=== PATIENT | male | born 1945 | race Caucasian/White ===

== ENCOUNTER 2018-04-27 15:25 | Inpatient (IN) | payer MEDICARE, BC ==
[2018-04-27] VITALS (10 sets, daily range): BP systolic 136–152; BP diastolic 71–84
[~2018-04-27] VITALS: Ht 182.9 cm; Wt 99.0 kg
[~2018-04-27 15:25] MED LIST: ALBU8.5H8 IH; FLUO10CA66 PO; LOSA50TA21 PO; LYSI500T40 PO; MULT-785 PO; OMEG1CAP54 PO
[2018-04-27] MEDS ORDERED: diphenhydrAMINE 25mg capsule PO PRN (15:50)
[2018-04-27] MEDS ORDERED: LORazepam 0.5 MG tablet PO PRN (15:50)
[2018-04-27] MEDS ORDERED: [UNRECOGNIZED DRUG - OTHER] PO (16:13)
[2018-04-27] MEDS: normal saline 1000ml 1,000 ML IV SCH (16:32)
[2018-04-27] MEDS ORDERED: LIDOcaine 1% (10mg/ml)w/preservative injection 20ml MDV ONE (19:09)
[2018-04-27] MEDS ORDERED: verapamil 2.5 mg/ml inj IV ONE (19:09)
[2018-04-27] MEDS ORDERED: heparin 1,000unit/ml 10ml vial 10 ML ONE (19:09)
[2018-04-27] MEDS ORDERED: fentaNYL/PF 50MCG/1 ML 2ML syringe ONE (19:09)
[2018-04-27] MEDS ORDERED: midazolam 2 mg/2 ml injection ONE (19:09)
[2018-04-27] MEDS ORDERED: iohexol 350MG/ML 100ml bottle IV ONE (19:09)
[2018-04-27] MEDS ORDERED: nitroGLYCERIN-Tridil 50MG/D5W 250 ML IV ONE (19:09)
[2018-04-27] MEDS ORDERED: hydrocortisone sod succ/PF 100mg/2ml inj. ONE (19:19)
[2018-04-27] MEDS ORDERED: ondansetron/PF 4mg/2ml inj IV PRN (20:40)
[2018-04-27] MEDS ORDERED: proCHLORperazine 10 MG/2 ml inj IV PRN (20:40)
[2018-04-28] MEDS: normal saline 1000ml 1,000 ML IV SCH ×3 (02:28→22:18)
[2018-04-28 03:00] VITALS: BP 129/73
[2018-04-28 05:59] LABS: CHOL/HDL RATIO 2.6 (0.00-4.99); CHOLESTEROL 155 MG/DL (0-200); CREATINE KINASE 71 U/L (39-308); HDL CHOLESTEROL 59 MG/DL (35-60); LDL CHOLESTEROL 84 MG/DL (50-100); TRIGLYCERIDES 82 MG/DL (20-135)
[2018-04-28 07:00] VITALS: BP 146/72
[2018-04-28] MEDS: atorvastatin 20mg tablet PO SCH (07:50)
[2018-04-28] MEDS: losartan 50mg tablet PO SCH (07:50)
[2018-04-28] MEDS: FLUoxetine 10mg capsule PO SCH (07:50)
[2018-04-28] MEDS: cyanocobalamin 500mcg tablet PO SCH (09:36)
[2018-04-28 09:52] LABS: HEMATOCRIT 43.6 % (42.0-52.0); HEMOGLOBIN 14.3 g/dl (14.0-17.9); MEAN CORPUSCULAR HEMOGLOBIN 28.8 PG (27.0-31.0); MEAN CORPUSCULAR HGB CONC 32.7 % (33.0-36.5); MEAN PLATELET VOLUME 9.3 FL (7.4-10.4); PLATELET COUNT 308 X10'3 (140-440); RED BLOOD COUNT 4.95 X10'6 (4.70-6.10); RED CELL DISTRIBUTION WIDTH 15.5 % (11.5-14.5); WHITE BLOOD COUNT 8.7 X10'3 (4.5-11.0)
[2018-04-28 10:02] LABS: HEMOGLOBIN A1C 5.8 % (4.5-6.2)
[2018-04-28] MEDS: MESSAGE TO NURSING PO NR (10:06)
[2018-04-28 10:07] LABS: PARTIAL THROMBOPLASTIN TIME 29 SECONDS (22-32)
[2018-04-28 10:09] LABS: ALBUMIN 3.1 G/DL (3.4-5.0); ANION GAP 7 (8-16); BLOOD UREA NITROGEN 19 MG/DL (7-18); BUN/CREATININE RATIO 17.6 (5.4-32.0); CALCIUM 9.1 MG/DL (8.5-10.1); CHLORIDE 105 MMOL/L (99-107); CREATININE 1.08 MG/DL (0.60-1.10); GLUCOSE 112 MG/DL (70-104); POTASSIUM 4.2 MMOL/L (3.5-5.1); SODIUM 140 MMOL/L (135-145); TOTAL CARBON DIOXIDE 28.5 MMOL/L (24-32); eGFR 67 ML/MIN
[2018-04-28 11:00] VITALS: BP 152/73
[2018-04-28 15:00] VITALS: BP 137/76
[2018-04-28 19:00] VITALS: BP 118/57
[2018-04-28 23:00] VITALS: BP 143/74
[2018-04-28] MEDS: OXAZEpam 15mg capsule PO PRN (23:18)
[2018-04-29] VITALS (7 sets, daily range): BP systolic 131–166; BP diastolic 62–80
[2018-04-29 04:44] LABS: BASOPHILS % (AUTO) 0.5 % (0-1); EOSINOPHILS # (AUTO) 0.4 X10'3 (0-0.9); EOSINOPHILS % (AUTO) 4.7 % (0-6); HEMATOCRIT 40.4 % (42.0-52.0); HEMOGLOBIN 13.4 g/dl (14.0-17.9); LYMPHOCYTES % (AUTO) 25.9 % (21-51); MEAN CORPUSCULAR HGB CONC 33.3 % (33.0-36.5); MEAN CORPUSCULAR VOLUME 87.1 FL (78-98); MEAN PLATELET VOLUME 9.1 FL (7.4-10.4); MONOCYTES # (AUTO) 0.8 X10'3 (0-0.9); MONOCYTES % (AUTO) 10.4 % (2-12); NEUTROPHILS # (AUTO) 4.4 X10'3 (1.8-7.7); NEUTROPHILS % (AUTO) 58.5 % (42-75); PLATELET COUNT 274 X10'3 (140-440); RED BLOOD COUNT 4.64 X10'6 (4.70-6.10); RED CELL DISTRIBUTION WIDTH 14.7 % (11.5-14.5); WHITE BLOOD COUNT 7.6 X10'3 (4.5-11.0)
[2018-04-29 04:56] LABS: ALBUMIN 2.9 G/DL (3.4-5.0); ANION GAP 5 (8-16); BLOOD UREA NITROGEN 17 MG/DL (7-18); BUN/CREATININE RATIO 15.9 (5.4-32.0); CALCIUM 8.9 MG/DL (8.5-10.1); CHLORIDE 107 MMOL/L (99-107); CREATININE 1.07 MG/DL (0.60-1.10); GLUCOSE 95 MG/DL (70-104); POTASSIUM 4.2 MMOL/L (3.5-5.1); SODIUM 142 MMOL/L (135-145); TOTAL CARBON DIOXIDE 29.7 MMOL/L (24-32); eGFR 68 ML/MIN
[2018-04-29] MEDS ORDERED: dextrose 50%-water 50ml dispensing syringe IV PRN (07:20)
[2018-04-29] MEDS: losartan 50mg tablet PO SCH (07:41)
[2018-04-29] MEDS: cyanocobalamin 500mcg tablet PO SCH (07:41)
[2018-04-29] MEDS: atorvastatin 20mg tablet PO SCH (07:41)
[2018-04-29] MEDS: FLUoxetine 10mg capsule PO SCH (07:41)
[2018-04-29] MEDS: normal saline 1000ml 1,000 ML IV SCH ×2 (07:55→17:50)
[2018-04-29] MEDS: MESSAGE TO NURSING PO NR (10:00)
[2018-04-29] MEDS ORDERED: MESSAGE TO NURSING PO ONE ×2 (12:00→17:30)
[2018-04-29 16:56] LABS: ABG BASE EXCESS 1.9 mmol/L (-2.0-3.0); ABG HCO3 25.8 mmol/L (22.0-26.0); ABG OXYGEN SATURATION 97.9 % (95-98); ABG PCO2 (T) 37.9 mmHg (35.0-48.0); ABG PO2 (T) 115.1 mmHg (83-108); FCOHb 0.1 % (0.5-1.5); FMetHb 0.1 % (0.3-1.12); FO2Hb 97.7 % (94-100); TOTAL HEMOGLOBIN 14.5 G/dl (14.0-18.0)
[2018-04-29] MEDS ORDERED: ringers solution, lacted 1,000 ML IV ONE (18:38)
[2018-04-29] MEDS: OXAZEpam 15mg capsule PO PRN (20:38)
[2018-04-30] VITALS (16 sets, daily range): BP systolic 90–165; BP diastolic 48–84
[2018-04-30] MEDS ORDERED: MESSAGE TO NURSING PO ONE ×3 (01:30→05:30)
[2018-04-30] MEDS: normal saline 1000ml 1,000 ML IV SCH (03:50)
[2018-04-30] MEDS ORDERED: cefazolin/dext.iso 2gm/100ml 100 ML IV ONE (05:30)
[2018-04-30] MEDS ORDERED: vancomycin/NS 1 GM ADD-VANTAGE 250 ML IV ONE (05:30)
[2018-04-30] MEDS ORDERED: famotidine 20mg tablet PO ONE (06:00)
[2018-04-30] MEDS ORDERED: LORazepam 2 mg/ml vial IV ONE (06:00)
[2018-04-30 06:30] LABS: BASOPHILS % (AUTO) 0.6 % (0-1); EOSINOPHILS # (AUTO) 0.3 X10'3 (0-0.9); EOSINOPHILS % (AUTO) 4.6 % (0-6); HEMATOCRIT 41.2 % (42.0-52.0); HEMOGLOBIN 13.7 g/dl (14.0-17.9); LYMPHOCYTES # (AUTO) 1.5 X10'3 (1.1-4.8); LYMPHOCYTES % (AUTO) 20.9 % (21-51); MEAN CORPUSCULAR HGB CONC 33.3 % (33.0-36.5); MEAN PLATELET VOLUME 9.4 FL (7.4-10.4); MONOCYTES # (AUTO) 0.7 X10'3 (0-0.9); MONOCYTES % (AUTO) 9.5 % (2-12); NEUTROPHILS # (AUTO) 4.8 X10'3 (1.8-7.7); NEUTROPHILS % (AUTO) 64.4 % (42-75); PLATELET COUNT 270 X10'3 (140-440); RED BLOOD COUNT 4.73 X10'6 (4.70-6.10); WHITE BLOOD COUNT 7.4 X10'3 (4.5-11.0)
[2018-04-30 06:38] LABS: ANION GAP 8 (8-16); BLOOD UREA NITROGEN 18 MG/DL (7-18); BUN/CREATININE RATIO 16.5 (5.4-32.0); CHLORIDE 106 MMOL/L (99-107); CREATININE 1.09 MG/DL (0.60-1.10); GLUCOSE 95 MG/DL (70-104); POTASSIUM 3.9 MMOL/L (3.5-5.1); SODIUM 142 MMOL/L (135-145); TOTAL CARBON DIOXIDE 27.8 MMOL/L (24-32); eGFR 66 ML/MIN
[2018-04-30 06:42] LABS: PROTHROMBIN TIME 10.1 SECONDS (9.0-12.0)
[2018-04-30] MEDS: atorvastatin 20mg tablet PO SCH (07:55)
[2018-04-30] MEDS ORDERED: mupirocin 2% nasal ointment 1gm UD NS SCH (08:00)
[2018-04-30] MEDS ORDERED: phenylephrine 10mg/ml inj. ONE ×2 (09:00→15:01)
[2018-04-30] MEDS ORDERED: heparin 1,000 units/ml 10ml inj ONE (09:00)
[2018-04-30] MEDS ORDERED: sodium bicarbonate (8.4%) 1 mEq/ml syringe ONE (09:00)
[2018-04-30] MEDS ORDERED: potassium Cl 2 mEq/ml inj IV ONE (09:00)
[2018-04-30] MEDS ORDERED: aminocaproic acid 250 MG/1 ML inj. ONE ×2 (09:00→11:40)
[2018-04-30] MEDS ORDERED: albumin (human) 25% 100 ML IV solution IV ONE (09:00)
[2018-04-30] MEDS ORDERED: LIDOcaine 2% (20 mg/ml) 5ml cardiac syringe ONE (09:00)
[2018-04-30] MEDS ORDERED: heparin 10,000 units/1 ML INJ ONE (09:00)
[2018-04-30] MEDS ORDERED: calcium chloride 100 MG/1 ML inj IV ONE (09:00)
[2018-04-30] MEDS ORDERED: methylPREDNISolone sod succ 1000mg vial ONE (09:00)
[2018-04-30] MEDS ORDERED: magnesium sulf 1 GM/2 ML ONE (09:00)
[2018-04-30] MEDS ORDERED: metoprolol tartrate 12.5mg (1/2 tablet) PO ONE (09:40)
[2018-04-30] MEDS ORDERED: MIDAZolam 1mg/ml 10ml vial ONE (11:36)
[2018-04-30] MEDS ORDERED: SUFENTANIL CITRATE 50 MCG/ML 2ml ampule IV ONE (11:37)
[2018-04-30] MEDS ORDERED: isoflurane 100ml inhalation liquid IH ONE (11:40)
[2018-04-30] MEDS ORDERED: DOPamine/D5W 400mg/250ml bag IV ONE (11:40)
[2018-04-30] MEDS ORDERED: protamine sulf. 10mg/ml inj. IV ONE (11:40)
[2018-04-30] MEDS ORDERED: nitroGLYCERIN in D5W 50mg/250ml (Tridil) infusion IV ONE (11:40)
[2018-04-30 12:20] LABS: ABG BASE EXCESS 1.8 mmol/L (-2.0-3.0); ABG HCO3 25.2 mmol/L (22.0-26.0); ABG OXYGEN SATURATION 99.1 % (95-98); ABG PCO2 35.5 mmHg (35.0-45.0); ABG PH 7.469 (7.350-7.450); ABG PO2 427.3 mmHg (60.0-100.0); CL (ABG) 109 mmol/L (99-107); FCOHb 0.3 % (0.5-1.5); FMetHb 0.4 % (0.3-1.12); FO2Hb 98.4 % (94-100); GLUCOSE (ABG) 99 mg/dl (70-105); IONIZED CA (ABG) 1.14 mmol/L (1.03-1.32); K (ABG) 3.9 mmol/L (3.3-5.1); NA (ABG) 139 mmol/L (135-145); TOTAL HEMOGLOBIN 13.8 G/dl (14.0-18.0)
[2018-04-30 12:36] LABS: ACT @ 1.70 U 278 SEC (193-297); ACT @ 2.84 U 394 SEC (260-420); BASELINE ACT 157 SEC (101-148)
[2018-04-30] MEDS ORDERED: papaverine 30 mg/ml 2ml inj. IA ONE (12:42)
[2018-04-30] MEDS ORDERED: heparin 10,000 units/1 ML INJ IR ONE (12:43)
[2018-04-30 13:55] LABS: ABG BASE EXCESS 1.3 mmol/L (-2.0-3.0); ABG HCO3 25.3 mmol/L (22.0-26.0); ABG OXYGEN SATURATION 98.8 % (95-98); ABG PCO2 37.9 mmHg (35.0-45.0); ABG PH 7.443 (7.350-7.450); ABG PO2 301.9 mmHg (60.0-100.0); CL (ABG) 106 mmol/L (99-107); FCOHb 0.3 % (0.5-1.5); FMetHb 0.1 % (0.3-1.12); FO2Hb 98.4 % (94-100); GLUCOSE (ABG) 121 mg/dl (70-105); IONIZED CA (ABG) 1.03 mmol/L (1.03-1.32); K (ABG) 5.3 mmol/L (3.3-5.1); NA (ABG) 135 mmol/L (135-145); TOTAL HEMOGLOBIN 10.8 G/dl (14.0-18.0)
[2018-04-30] MEDS ORDERED: ipratropium/albuterol 3ml nebule IH PRN (14:10)
[2018-04-30 14:21] LABS: ABG BASE EXCESS VENOUS 0.1 mmol/L; ABG HCO3 VENOUS 25.3 mmol/L; ABG PCO2 VENOUS 43.4 mmHg; ABG PO2 VENOUS 44.7 mmHg; CL (ABG) 107 mmol/L (99-107); FCOHb VENOUS 0.8 %; FHHb VENOUS 18.6 %; FMetHb VENOUS 0.3 %; FO2Hb VENOUS 80.3 %; GLUCOSE (ABG) 146 mg/dl (70-105); IONIZED CA (ABG) 1.04 mmol/L (1.03-1.32); K (ABG) 5.6 mmol/L (3.3-5.1); NA (ABG) 136 mmol/L (135-145); TOTAL HEMOGLOBIN 10.3 G/dl (14.0-18.0)
[2018-04-30] MEDS ORDERED: rocuronium 10mg/ml inj IV ONE (15:00)
[2018-04-30] MEDS ORDERED: propofol inj 20 ML IV ONE (15:00)
[2018-04-30] MEDS ORDERED: LIDOcaine 2% (20mg/ml) 5ml vial ONE (15:00)
[2018-04-30] MEDS ORDERED: epiNEPHrine 1 mg/ml inj ONE (15:01)
[2018-04-30] MEDS ORDERED: ePHEDrine 50MG/ML INJ. ONE (15:01)
[2018-04-30 15:11] LABS: ABG BASE EXCESS -0.8 mmol/L (-2.0-3.0); ABG HCO3 24.2 mmol/L (22.0-26.0); ABG OXYGEN SATURATION 98.5 % (95-98); ABG PCO2 41.7 mmHg (35.0-45.0); ABG PH 7.382 (7.350-7.450); CL (ABG) 105 mmol/L (99-107); FCOHb 0.1 % (0.5-1.5); FMetHb 0.4 % (0.3-1.12); GLUCOSE (ABG) 140 mg/dl (70-105); K (ABG) 5.5 mmol/L (3.3-5.1); NA (ABG) 131 mmol/L (135-145)
[2018-04-30] MEDS: losartan 50mg tablet PO SCH (15:22)
[2018-04-30] MEDS: FLUoxetine 10mg capsule PO SCH (15:22)
[2018-04-30] MEDS: insulin Lispro (HumaLOG) vial - multi-dose SQ SCH ×3 (15:23→18:00)
[2018-04-30] MEDS: cyanocobalamin 500mcg tablet PO SCH (15:23)
[2018-04-30] MEDS: MESSAGE TO NURSING PO NR (15:24)
[2018-04-30 15:51] LABS: ABG BASE EXCESS VENOUS 1.4 mmol/L; ABG HCO3 VENOUS 26.1 mmol/L; ABG PCO2 VENOUS 41.7 mmHg; ABG PO2 VENOUS 37.5 mmHg; CL (ABG) 109 mmol/L (99-107); FCOHb VENOUS 0.5 %; FHHb VENOUS 26.2 %; FMetHb VENOUS 0.5 %; FO2Hb VENOUS 72.8 %; GLUCOSE (ABG) 129 mg/dl (70-105); IONIZED CA (ABG) 1.16 mmol/L (1.03-1.32); K (ABG) 4.6 mmol/L (3.3-5.1); NA (ABG) 136 mmol/L (135-145)
[2018-04-30] MEDS ORDERED: niCARDipine-NS 40mg/200ml IVPB 200 ML IV PRN (16:42)
[2018-04-30] MEDS ORDERED: nitroGLYCERIN-Tridil 50MG/D5W 250 ML IV PRN (16:42)
[2018-04-30] MEDS ORDERED: DOPamine 400mg/D5W 250ml 250 ML IV PRN ×2 (16:42→17:09)
[2018-04-30] MEDS ORDERED: potassium Cl 20mEq/100mL bag 100 ML IV PRN ×2 (16:45)
[2018-04-30] MEDS ORDERED: acetaminophen 325mg tablet PO PRN (16:45)
[2018-04-30] MEDS ORDERED: normal saline 250ml IV soln 250 ML IV PRN (16:45)
[2018-04-30] MEDS ORDERED: sodium phosphate inj. 15 MMOL in dextrose 5%-water 150 ML IV PRN (16:45)
[2018-04-30] MEDS ORDERED: sodium phosphate inj. 30 MMOL in dextrose 5%-water 250 ML IV PRN (16:45)
[2018-04-30] MEDS ORDERED: pantoprazole 40 MG vial IV ONE (16:45)
[2018-04-30] MEDS ORDERED: Neutra Phos packet PO PRN (16:45)
[2018-04-30] MEDS ORDERED: ondansetron/PF 4mg/2ml inj IV PRN (16:45)
[2018-04-30] MEDS ORDERED: metoclopramide 5 mg/ml inj IV PRN (16:45)
[2018-04-30] MEDS ORDERED: magnesium 4gm in 100ml NS 100 ML IV PRN (16:45)
[2018-04-30] MEDS ORDERED: dextrose 50%-water 50ml dispensing syringe IV PRN (16:45)
[2018-04-30] MEDS ORDERED: magnesium hydroxide 30ml (MOM) UD suspension PO PRN (16:45)
[2018-04-30] MEDS ORDERED: insulin regular, human inj. 100 UNITS in normal saline 100ml IV soln 100 ML IV SCH ×2 (16:45)
[2018-04-30 16:56] LABS: ABG BASE EXCESS 0.7 mmol/L (-2.0-3.0); ABG HCO3 25.3 mmol/L (22.0-26.0); ABG PCO2 (T) 40.6 mmHg (35.0-48.0); ABG PH (T) 7.412 (7.350-7.450); ABG PO2 (T) 158.9 mmHg (83-108); FCOHb 0.3 % (0.5-1.5); FMetHb 0.1 % (0.3-1.12); FO2Hb 97.6 % (94-100); MINUTE VOLUME 8 L/min; PATIENT TEMPERATURE 36.9; PEEP 5 cm H2O; RESPIRATORY RATE 12 b/min; TIDAL VOLUME 650 mL
[2018-04-30] MEDS: sodium chloride 0.45% 1,000 ML IV SCH (17:00)
[2018-04-30 17:18] LABS: BASOPHILS % (AUTO) 0 % (0-1); EOSINOPHILS % (AUTO) 0.2 % (0-6); HEMATOCRIT 30.9 % (42.0-52.0); HEMOGLOBIN 10.1 g/dl (14.0-17.9); LYMPHOCYTES # (AUTO) 0.6 X10'3 (1.1-4.8); LYMPHOCYTES % (AUTO) 5.5 % (21-51); MEAN CORPUSCULAR HEMOGLOBIN 28.4 PG (27.0-31.0); MEAN CORPUSCULAR HGB CONC 32.7 % (33.0-36.5); MEAN CORPUSCULAR VOLUME 86.7 FL (78-98); MEAN PLATELET VOLUME 9.1 FL (7.4-10.4); MONOCYTES # (AUTO) 0.6 X10'3 (0-0.9); MONOCYTES % (AUTO) 5.4 % (2-12); NEUTROPHILS # (AUTO) 10.3 X10'3 (1.8-7.7); NEUTROPHILS % (AUTO) 88.9 % (42-75); PLATELET COUNT 179 X10'3 (140-440); RED BLOOD COUNT 3.56 X10'6 (4.70-6.10); RED CELL DISTRIBUTION WIDTH 14.7 % (11.5-14.5); WHITE BLOOD COUNT 11.6 X10'3 (4.5-11.0)
[2018-04-30 17:34] LABS: ALANINE AMINOTRANSFERASE 18 U/L (12-78); ALBUMIN 2.8 G/DL (3.4-5.0); ALBUMIN/GLOBULIN RATIO 1.5 (1.1-1.5); ALKALINE PHOSPHATASE 55 IU/L (46-116); ANION GAP 9 (8-16); ASPARTATE AMINO TRANSFERASE 31 U/L (10-37); BILIRUBIN,TOTAL 0.7 MG/DL (0.1-1.0); BLOOD UREA NITROGEN 17 MG/DL (7-18); BUN/CREATININE RATIO 17.3 (5.4-32.0); CALCIUM 7.9 MG/DL (8.5-10.1); CHLORIDE 110 MMOL/L (99-107); CREATININE 0.98 MG/DL (0.60-1.10); GLUCOSE 109 MG/DL (70-104); MAGNESIUM 2.9 MG/DL (1.5-2.4); PHOSPHORUS 2.4 MG/DL (2.3-4.5); SODIUM 145 MMOL/L (135-145); TOTAL CARBON DIOXIDE 25.7 MMOL/L (24-32); TOTAL PROTEIN 4.7 G/DL (6.4-8.2); eGFR 75 ML/MIN
[2018-04-30] MEDS: albumin (Human) 5% 250ml 250 ML IV PRN ×4 (17:47→21:25)
[2018-04-30] MEDS: potassium Cl 20mEq/100mL bag 100 ML IV PRN ×2 (17:48→23:18)
[2018-04-30 18:07] LABS: INR 1.1 INR; PARTIAL THROMBOPLASTIN TIME 25 SECONDS (22-32); PROTHROMBIN TIME 11.4 SECONDS (9.0-12.0)
[2018-04-30] MEDS: morphine 4 MG/ML inj SYRINge IV PRN ×2 (18:16→20:24)
[2018-04-30] MEDS: insulin regular, human inj. 100 UNITS in normal saline 100ml IV soln 100 ML IV SCH ×2 (18:20)
[2018-04-30] MEDS: vancomycin/NS 1 GM ADD-VANTAGE 250 ML IV SCH (19:18)
[2018-04-30] MEDS: docusate sod 100mg capsule PO SCH (19:19)
[2018-04-30] MEDS: mupirocin 2% ointment 22GM NS SCH (19:19)
[2018-04-30 22:58] LABS: BASOPHILS % (AUTO) 0 % (0-1); EOSINOPHILS # (AUTO) 0.1 X10'3 (0-0.9); HEMOGLOBIN 8.2 g/dl (14.0-17.9); LYMPHOCYTES # (AUTO) 0.3 X10'3 (1.1-4.8); LYMPHOCYTES % (AUTO) 2.6 % (21-51); MEAN CORPUSCULAR HEMOGLOBIN 28.6 PG (27.0-31.0); MEAN CORPUSCULAR HGB CONC 32.8 % (33.0-36.5); MONOCYTES # (AUTO) 0.5 X10'3 (0-0.9); MONOCYTES % (AUTO) 4.8 % (2-12); NEUTROPHILS # (AUTO) 9.8 X10'3 (1.8-7.7); NEUTROPHILS % (AUTO) 91.6 % (42-75); PLATELET COUNT 173 X10'3 (140-440); RED BLOOD COUNT 2.87 X10'6 (4.70-6.10); RED CELL DISTRIBUTION WIDTH 14.9 % (11.5-14.5); WHITE BLOOD COUNT 10.7 X10'3 (4.5-11.0)
[2018-04-30 23:11] LABS: ALBUMIN 3.2 G/DL (3.4-5.0); ANION GAP 9 (8-16); BLOOD UREA NITROGEN 18 MG/DL (7-18); BUN/CREATININE RATIO 15.7 (5.4-32.0); CALCIUM 7.8 MG/DL (8.5-10.1); CHLORIDE 112 MMOL/L (99-107); CREATININE 1.15 MG/DL (0.60-1.10); GLUCOSE 140 MG/DL (70-104); MAGNESIUM 2.5 MG/DL (1.5-2.4); PHOSPHORUS 3.9 MG/DL (2.3-4.5); POTASSIUM 4.3 MMOL/L (3.5-5.1); SODIUM 145 MMOL/L (135-145); TOTAL CARBON DIOXIDE 24.4 MMOL/L (24-32); eGFR 63 ML/MIN
[2018-05-01] VITALS (24 sets, daily range): BP systolic 85–129; BP diastolic 42–67
[2018-05-01] MEDS: ceFAZolin 1GM/D5W- ADD-VANTAGE 50 ML IV SCH ×4 (00:05→23:33)
[2018-05-01 00:30] LABS: ABG BASE EXCESS -2.7 mmol/L (-2.0-3.0); ABG HCO3 22.6 mmol/L (22.0-26.0); ABG OXYGEN SATURATION 96.8 % (95-98); ABG PCO2 (T) 40.2 mmHg (35.0-48.0); ABG PH (T) 7.365 (7.350-7.450); ABG PO2 (T) 103.3 mmHg (83-108); FCOHb 0.3 % (0.5-1.5); FMetHb 0.1 % (0.3-1.12); FO2Hb 96.4 % (94-100); MINUTE VOLUME 7 L/min; PATIENT TEMPERATURE 36.3; PEEP 5 cm H2O; RESPIRATORY RATE (OBSERVED) 15 b/min; TOTAL HEMOGLOBIN 8.6 G/dl (14.0-18.0)
[2018-05-01] MEDS: morphine 4 MG/ML inj SYRINge IV PRN ×2 (01:15→14:49)
[2018-05-01 02:06] LABS: BASOPHILS % (AUTO) 0 % (0-1); EOSINOPHILS % (AUTO) 0 % (0-6); HEMOGLOBIN 8.4 g/dl (14.0-17.9); LYMPHOCYTES # (AUTO) 0.3 X10'3 (1.1-4.8); LYMPHOCYTES % (AUTO) 3.1 % (21-51); MEAN CORPUSCULAR HEMOGLOBIN 29.2 PG (27.0-31.0); MEAN CORPUSCULAR HGB CONC 33.5 % (33.0-36.5); MEAN CORPUSCULAR VOLUME 87.3 FL (78-98); MEAN PLATELET VOLUME 9.2 FL (7.4-10.4); MONOCYTES # (AUTO) 0.6 X10'3 (0-0.9); MONOCYTES % (AUTO) 5.2 % (2-12); NEUTROPHILS # (AUTO) 9.8 X10'3 (1.8-7.7); NEUTROPHILS % (AUTO) 91.7 % (42-75); PLATELET COUNT 162 X10'3 (140-440); RED BLOOD COUNT 2.86 X10'6 (4.70-6.10); RED CELL DISTRIBUTION WIDTH 13.8 % (11.5-14.5); WHITE BLOOD COUNT 10.7 X10'3 (4.5-11.0)
[2018-05-01 02:20] LABS: ALANINE AMINOTRANSFERASE 16 U/L (12-78); ALBUMIN 3.2 G/DL (3.4-5.0); ALBUMIN/GLOBULIN RATIO 1.7 (1.1-1.5); ALKALINE PHOSPHATASE 53 IU/L (46-116); ANION GAP 10 (8-16); ASPARTATE AMINO TRANSFERASE 43 U/L (10-37); BILIRUBIN,TOTAL 0.6 MG/DL (0.1-1.0); BLOOD UREA NITROGEN 20 MG/DL (7-18); BUN/CREATININE RATIO 16.8 (5.4-32.0); CALCIUM 7.9 MG/DL (8.5-10.1); CHLORIDE 111 MMOL/L (99-107); CREATININE 1.19 MG/DL (0.60-1.10); GLUCOSE 147 MG/DL (70-104); MAGNESIUM 2.4 MG/DL (1.5-2.4); PHOSPHORUS 4.4 MG/DL (2.3-4.5); POTASSIUM 4.7 MMOL/L (3.5-5.1); SODIUM 145 MMOL/L (135-145); TOTAL CARBON DIOXIDE 23.6 MMOL/L (24-32); TOTAL PROTEIN 5.1 G/DL (6.4-8.2); eGFR 60 ML/MIN
[2018-05-01 02:23] LABS: PROTHROMBIN TIME 10.7 SECONDS (9.0-12.0)
[2018-05-01 02:24] LABS: INR 1.1 INR; PARTIAL THROMBOPLASTIN TIME 30 SECONDS (22-32)
[2018-05-01] MEDS: magnesium 1gm/100ml D5W IVPB 100 ML IV PRN ×2 (03:08→04:04)
[2018-05-01] MEDS: HYDROcodone/acetaminophen 10/325mg tab PO PRN ×5 (03:12→20:47)
[2018-05-01] MEDS: insulin regular, human inj. 100 UNITS in normal saline 100ml IV soln 100 ML IV SCH ×2 (05:30)
[2018-05-01] MEDS: metoprolol tartrate 12.5mg (1/2 tablet) PO SCH ×2 (08:00→19:41)
[2018-05-01] MEDS: atorvastatin 10mg tablet PO SCH (08:02)
[2018-05-01] MEDS: docusate sod 100mg capsule PO SCH ×2 (08:02→19:41)
[2018-05-01] MEDS: aspirin 325mg tablet, delayed-release (Ecotrin) PO SCH (08:02)
[2018-05-01] MEDS: mupirocin 2% ointment 22GM NS SCH ×2 (08:02→19:41)
[2018-05-01] MEDS: vancomycin/NS 1 GM ADD-VANTAGE 250 ML IV SCH ×2 (08:03→19:41)
[2018-05-01] MEDS: insulin Lispro (HumaLOG) vial - multi-dose SQ SCH (09:00)
[2018-05-02] VITALS (24 sets, daily range): BP systolic 93–138; BP diastolic 47–88
[2018-05-02] MEDS: HYDROcodone/acetaminophen 10/325mg tab PO PRN ×3 (02:22→19:38)
[2018-05-02 02:39] LABS: BASOPHILS % (AUTO) 0.1 % (0-1); EOSINOPHILS % (AUTO) 0 % (0-6); HEMATOCRIT 22.5 % (42.0-52.0); HEMOGLOBIN 7.7 g/dl (14.0-17.9); LYMPHOCYTES # (AUTO) 0.7 X10'3 (1.1-4.8); MEAN CORPUSCULAR HEMOGLOBIN 29.7 PG (27.0-31.0); MEAN CORPUSCULAR HGB CONC 34.3 % (33.0-36.5); MEAN CORPUSCULAR VOLUME 86.4 FL (78-98); MEAN PLATELET VOLUME 10.6 FL (7.4-10.4); MONOCYTES # (AUTO) 1.1 X10'3 (0-0.9); MONOCYTES % (AUTO) 8.3 % (2-12); NEUTROPHILS # (AUTO) 11.3 X10'3 (1.8-7.7); NEUTROPHILS % (AUTO) 86.6 % (42-75); PLATELET COUNT 151 X10'3 (140-440); RED CELL DISTRIBUTION WIDTH 14.1 % (11.5-14.5); WHITE BLOOD COUNT 13.1 X10'3 (4.5-11.0)
[2018-05-02 02:49] LABS: ANION GAP 6 (8-16); BLOOD UREA NITROGEN 31 MG/DL (7-18); CALCIUM 7.9 MG/DL (8.5-10.1); CHLORIDE 107 MMOL/L (99-107); CREATININE 1.35 MG/DL (0.60-1.10); GLUCOSE 170 MG/DL (70-104); MAGNESIUM 2.4 MG/DL (1.5-2.4); POTASSIUM 4.7 MMOL/L (3.5-5.1); SODIUM 139 MMOL/L (135-145); TOTAL CARBON DIOXIDE 26.1 MMOL/L (24-32); eGFR 52 ML/MIN
[2018-05-02] MEDS: atorvastatin 10mg tablet PO SCH (07:45)
[2018-05-02] MEDS: pantoprazole 40mg Tablet.DR PO SCH (07:45)
[2018-05-02] MEDS: ceFAZolin 1GM/D5W- ADD-VANTAGE 50 ML IV SCH (07:45)
[2018-05-02] MEDS: metoprolol tartrate 12.5mg (1/2 tablet) PO SCH ×2 (07:47→19:37)
[2018-05-02] MEDS: docusate sod 100mg capsule PO SCH ×2 (07:47→19:37)
[2018-05-02] MEDS: aspirin 325mg tablet, delayed-release (Ecotrin) PO SCH (07:48)
[2018-05-02] MEDS: mupirocin 2% ointment 22GM NS SCH (08:00)
[2018-05-02] MEDS: furosemide 40mg/4ml inj IV ONE ×2 (09:10→16:21)
[2018-05-02] MEDS: sodium chloride 0.45% 1,000 ML IV SCH (16:42)
[2018-05-03] VITALS (24 sets, daily range): BP systolic 96–144; BP diastolic 44–72
[2018-05-03] MEDS: HYDROcodone/acetaminophen 10/325mg tab PO PRN ×2 (04:22→19:34)
[2018-05-03 05:20] LABS: BASOPHILS % (AUTO) 0.2 % (0-1); EOSINOPHILS # (AUTO) 0.1 X10'3 (0-0.9); EOSINOPHILS % (AUTO) 1.3 % (0-6); HEMATOCRIT 22.5 % (42.0-52.0); HEMOGLOBIN 7.5 g/dl (14.0-17.9); LYMPHOCYTES # (AUTO) 1.5 X10'3 (1.1-4.8); LYMPHOCYTES % (AUTO) 14.9 % (21-51); MEAN CORPUSCULAR HEMOGLOBIN 28.9 PG (27.0-31.0); MEAN CORPUSCULAR HGB CONC 33.2 % (33.0-36.5); MEAN CORPUSCULAR VOLUME 87.1 FL (78-98); MEAN PLATELET VOLUME 10.9 FL (7.4-10.4); MONOCYTES # (AUTO) 0.9 X10'3 (0-0.9); MONOCYTES % (AUTO) 9.1 % (2-12); NEUTROPHILS # (AUTO) 7.4 X10'3 (1.8-7.7); NEUTROPHILS % (AUTO) 74.5 % (42-75); PLATELET COUNT 164 X10'3 (140-440); RED BLOOD COUNT 2.59 X10'6 (4.70-6.10); RED CELL DISTRIBUTION WIDTH 15.3 % (11.5-14.5); WHITE BLOOD COUNT 9.9 X10'3 (4.5-11.0)
[2018-05-03 05:42] LABS: ALBUMIN 2.9 G/DL (3.4-5.0); ANION GAP 8 (8-16); BLOOD UREA NITROGEN 39 MG/DL (7-18); BUN/CREATININE RATIO 29.8 (5.4-32.0); CHLORIDE 106 MMOL/L (99-107); CREATININE 1.31 MG/DL (0.60-1.10); GLUCOSE 111 MG/DL (70-104); MAGNESIUM 2.2 MG/DL (1.5-2.4); PHOSPHORUS 2.8 MG/DL (2.3-4.5); POTASSIUM 4.2 MMOL/L (3.5-5.1); SODIUM 141 MMOL/L (135-145); TOTAL CARBON DIOXIDE 26.6 MMOL/L (24-32); eGFR 54 ML/MIN
[2018-05-03 07:03] LABS: LARGE PLATELETS FEW; PLATELET ESTIMATE NORMAL
[2018-05-03] MEDS: metoprolol tartrate 12.5mg (1/2 tablet) PO SCH (07:55)
[2018-05-03] MEDS: pantoprazole 40mg Tablet.DR PO SCH (07:55)
[2018-05-03] MEDS: aspirin 81mg tab.chew PO SCH (07:55)
[2018-05-03] MEDS: docusate sod 100mg capsule PO SCH ×2 (07:56→19:35)
[2018-05-03] MEDS: cyanocobalamin 500mcg tablet PO SCH (07:56)
[2018-05-03] MEDS: atorvastatin 10mg tablet PO SCH (07:56)
[2018-05-03] MEDS: lactose-reduced food (Ensure High Protein) 237ml bottle PO SCH ×3 (08:00→18:00)
[2018-05-03] MEDS ORDERED: furosemide 40mg/4ml inj IV ONE (14:15)
[2018-05-03] MEDS: metoprolol tartrate 25mg tablet PO SCH (19:35)
[2018-05-04] VITALS (13 sets, daily range): BP systolic 105–151; BP diastolic 58–80
[2018-05-04 06:37] LABS: BASOPHILS % (AUTO) 0.2 % (0-1); EOSINOPHILS # (AUTO) 0.3 X10'3 (0-0.9); EOSINOPHILS % (AUTO) 3.4 % (0-6); HEMATOCRIT 23.5 % (42.0-52.0); HEMOGLOBIN 7.9 g/dl (14.0-17.9); LYMPHOCYTES # (AUTO) 1.5 X10'3 (1.1-4.8); LYMPHOCYTES % (AUTO) 17.2 % (21-51); MEAN CORPUSCULAR HEMOGLOBIN 29.1 PG (27.0-31.0); MEAN CORPUSCULAR HGB CONC 33.5 % (33.0-36.5); MEAN CORPUSCULAR VOLUME 86.9 FL (78-98); MEAN PLATELET VOLUME 10.9 FL (7.4-10.4); NEUTROPHILS % (AUTO) 68.2 % (42-75); PLATELET COUNT 188 X10'3 (140-440); RED BLOOD COUNT 2.71 X10'6 (4.70-6.10); RED CELL DISTRIBUTION WIDTH 14.8 % (11.5-14.5); WHITE BLOOD COUNT 8.8 X10'3 (4.5-11.0)
[2018-05-04 06:54] LABS: ALBUMIN 2.7 G/DL (3.4-5.0); ANION GAP 7 (8-16); CALCIUM 8.1 MG/DL (8.5-10.1); CHLORIDE 106 MMOL/L (99-107); CREATININE 1.12 MG/DL (0.60-1.10); GLUCOSE 102 MG/DL (70-104); MAGNESIUM 2.2 MG/DL (1.5-2.4); PHOSPHORUS 2.6 MG/DL (2.3-4.5); POTASSIUM 4.1 MMOL/L (3.5-5.1); SODIUM 141 MMOL/L (135-145); TOTAL CARBON DIOXIDE 27.6 MMOL/L (24-32); eGFR 64 ML/MIN
[2018-05-04 07:02] LABS: BLOOD UREA NITROGEN 30 MG/DL (7-18); BUN/CREATININE RATIO 26.8 (5.4-32.0)
[2018-05-04] MEDS: pantoprazole 40mg Tablet.DR PO SCH (07:30)
[2018-05-04] MEDS: docusate sod 100mg capsule PO SCH (07:30)
[2018-05-04] MEDS: atorvastatin 10mg tablet PO SCH (07:30)
[2018-05-04] MEDS: aspirin 81mg tab.chew PO SCH (07:30)
[2018-05-04] MEDS: cyanocobalamin 500mcg tablet PO SCH (07:31)
[2018-05-04] MEDS ORDERED: losartan 25mg tablet PO SCH (08:00)
[2018-05-04 08:40] LABS: ACTIVATED CLOTTING TIME 100 SEC (101-148)
[2018-05-04] MEDS: lactose-reduced food (Ensure High Protein) 237ml bottle PO SCH (08:45)
[2018-05-04] MEDS: metoprolol tartrate 25mg tablet PO SCH (08:46)
[2018-05-04] MEDS: HYDROcodone/acetaminophen 10/325mg tab PO PRN (08:58)
[2018-05-04] MEDS ORDERED: ASPI-1265 PO (12:02)
[2018-05-04] MEDS ORDERED: COL100C PO (12:02)
[2018-05-04] MEDS ORDERED: HYDR-3972 PO (12:02)
[2018-05-04] MEDS ORDERED: ATOR10TA PO (12:02)
== END 2018-05-04 13:56 | disposition home or self-care (01) | DRG 234 ==
LOC: SSTAY O 15:25 → PCU 3S 20:00 → UNDODISIN 04-30 11:36 → CICU 2S 04-30 16:35
PROVIDERS: ADMIT Internal Medicine Interventional Cardiology; ATTEND Thoracic Surgery (Cardiothoracic Vascular Surgery)
PROC: 4A023N7 Measurement of Cardiac Sampling and Pressure, Left Heart, Percutaneous Approach (ICD-10-PCS; 2018-04-27)
PROC: B2111ZZ Fluoroscopy of Multiple Coronary Arteries using Low Osmolar Contrast (ICD-10-PCS; 2018-04-27)
PROC: B2151ZZ Fluoroscopy of Left Heart using Low Osmolar Contrast (ICD-10-PCS; 2018-04-27)
PROC: 021309W Bypass Coronary Artery, Four or More Arteries from Aorta with Autologous Venous Tissue, Open Approach (ICD-10-PCS; 2018-04-30)
PROC: 06BP4ZZ Excision of Right Saphenous Vein, Percutaneous Endoscopic Approach (ICD-10-PCS; 2018-04-30)
PROC: 5A1221Z Performance of Cardiac Output, Continuous (ICD-10-PCS; 2018-04-30)
PROC: B24BZZ4 Ultrasonography of Heart with Aorta, Transesophageal (ICD-10-PCS; 2018-04-30)
PROC: 02HV33Z Insertion of Infusion Device into Superior Vena Cava, Percutaneous Approach (ICD-10-PCS; 2018-04-30)
PROC: B548ZZA Ultrasonography of Superior Vena Cava, Guidance (ICD-10-PCS; 2018-04-30)
PROC: 02100Z9 Bypass Coronary Artery, One Artery from Left Internal Mammary, Open Approach (ICD-10-PCS; principal; 2018-04-30 11:40)
DX: I25.110 Atherosclerotic heart disease of native coronary artery with unstable angina pectoris (principal); G47.33 Obstructive sleep apnea (adult) (pediatric); D64.9 Anemia, unspecified; I10 Essential (primary) hypertension; E78.00 Pure hypercholesterolemia, unspecified; G43.909 Migraine, unspecified, not intractable, without status migrainosus; E78.5 Hyperlipidemia, unspecified; Z96.653 Presence of artificial knee joint, bilateral; Z98.84 Bariatric surgery status; Z91.013 Allergy to seafood; Z86.711 Personal history of pulmonary embolism; Z86.718 Personal history of other venous thrombosis and embolism; Z82.49 Family history of ischemic heart disease and other diseases of the circulatory system
CPT/HCPCS: 0232T; 93312; 93325; 93458; 36415; 36600; 71045; 71046; 80048; 80053; 80061; 82330; 82435; 82550; 82803; 82947; 82948; 83036; 83735; 84100; 84132; 84295; 85018; 85025; 85027; 85347; 85384; 85610; 85730; 86885; 86900; 86901; 86920; 87070; 93005; 93880; 93971; 94002; 94010; 94667; 94668; 94760; 97110; 97116; 97161; 97164; 97530; 99152; 99153; A4620; A6255; A6258; A6402; A6449; A7000; A7048; C1751; C1769; C9113; G0378; J0171; J0690; J1265; J1644; J1720; J1815; J1940; J2001; J2060; J2250; J2270; J2370; J2440; J2704; J2720; J2930; J3010; J3370; J3475; J3480; J3490; J7030; J7120; P9045; P9047; Q0163; Q9967

== ENCOUNTER 2022-03-21 08:45 | Outpatient (CLI) | payer MEDICARE, BC ==
[~2022-03-21 08:45] MED LIST changes: +ALBU8.5H17 IH; -ALBU8.5H8 IH; +ASPI-1265 PO; +ATOR10TA PO; +COL100C PO; +HYDR-3972 PO; -LOSA50TA21 PO; +LOSA50TA64 PO; -MULT-785 PO; -OMEG1CAP54 PO; +[UNRECOGNIZED DRUG - OTHER] PO
[2022-03-21 10:02] LABS: ALANINE AMINOTRANSFERASE 24 U/L (12-78); ALBUMIN 3.2 G/DL (3.4-5.0); ALBUMIN/GLOBULIN RATIO 0.7 (1.1-1.5); ALKALINE PHOSPHATASE 128 IU/L (46-116); ANION GAP 8 (8-16); ASPARTATE AMINO TRANSFERASE 30 U/L (10-37); BILIRUBIN,TOTAL 0.4 MG/DL (0.1-1.0); BLOOD UREA NITROGEN 22 MG/DL (7-18); BUN/CREATININE RATIO 18.5 (5.4-32.0); CALCIUM 9.2 MG/DL (8.5-10.1); CHLORIDE 104 MMOL/L (99-107); CHOL/HDL RATIO 1.8 (0.00-4.99); CHOLESTEROL 128 MG/DL (0-200); CREATININE 1.19 MG/DL (0.60-1.10); GLUCOSE 96 MG/DL (70-104); HDL CHOLESTEROL 70 MG/DL (35-60); LDL CHOLESTEROL 44 MG/DL (50-100); POTASSIUM 4.6 MMOL/L (3.5-5.1); SODIUM 140 MMOL/L (135-145); TOTAL CARBON DIOXIDE 28.2 MMOL/L (24-32); TOTAL PROTEIN 7.6 G/DL (6.4-8.2); TRIGLYCERIDES 76 MG/DL (20-135); eGFR 59 ML/MIN
[2022-03-21 10:24] LABS: BASOPHILS % (AUTO) 0.4 % (0-1); EOSINOPHILS # (AUTO) 0.2 X10'3 (0-0.9); EOSINOPHILS % (AUTO) 2.6 % (0-6); HEMOGLOBIN 13.7 g/dl (14.0-17.9); LYMPHOCYTES # (AUTO) 1.6 X10'3 (1.1-4.8); LYMPHOCYTES % (AUTO) 19.3 % (21-51); MEAN CORPUSCULAR HEMOGLOBIN 26.8 PG (27.0-31.0); MEAN CORPUSCULAR HGB CONC 32.7 g/dL (33.0-36.5); MONOCYTES # (AUTO) 0.9 X10'3 (0-0.9); MONOCYTES % (AUTO) 10.8 % (2-12); NEUTROPHILS # (AUTO) 5.7 X10'3 (1.8-7.7); NEUTROPHILS % (AUTO) 66.9 % (42-75); PLATELET COUNT 321 X10'3 (140-440); RED BLOOD COUNT 5.13 X10'6 (4.70-6.10); RED CELL DISTRIBUTION WIDTH 16.6 % (11.5-14.5); WHITE BLOOD COUNT 8.5 X10'3 (4.5-11.0)
== END 2022-03-21 23:59 | disposition home or self-care (01) ==
LOC: LAB 08:45
PROVIDERS: ATTEND Specialist
DX: F33.41 Major depressive disorder, recurrent, in partial remission (principal); I25.119 Atherosclerotic heart disease of native coronary artery with unspecified angina pectoris; E78.2 Mixed hyperlipidemia
CPT/HCPCS: 36415; 80053; 80061; 84439; 84443; 85025

== ENCOUNTER 2022-03-26 11:18 | Day surgery (SDC) | payer MEDICARE, BC ==
[2022-03-21 09:28] LABS: BASOPHILS # (AUTO) 0.1 X10'3 (0-0.2); BASOPHILS % (AUTO) 0.6 % (0-1); EOSINOPHILS # (AUTO) 0.2 X10'3 (0-0.9); EOSINOPHILS % (AUTO) 2.4 % (0-6); HEMATOCRIT 42.1 % (42.0-52.0); HEMOGLOBIN 13.8 g/dl (14.0-17.9); LYMPHOCYTES # (AUTO) 1.6 X10'3 (1.1-4.8); LYMPHOCYTES % (AUTO) 18.9 % (21-51); MEAN CORPUSCULAR HEMOGLOBIN 26.8 PG (27.0-31.0); MEAN CORPUSCULAR HGB CONC 32.6 g/dL (33.0-36.5); MEAN PLATELET VOLUME 8.6 FL (7.4-10.4); MONOCYTES % (AUTO) 11.2 % (2-12); NEUTROPHILS # (AUTO) 5.7 X10'3 (1.8-7.7); NEUTROPHILS % (AUTO) 66.9 % (42-75); PLATELET COUNT 315 X10'3 (140-440); RED BLOOD COUNT 5.14 X10'6 (4.70-6.10); RED CELL DISTRIBUTION WIDTH 16.3 % (11.5-14.5); WHITE BLOOD COUNT 8.6 X10'3 (4.5-11.0)
[2022-03-21 09:49] LABS: APTT 29 SECONDS (22-32)
[2022-03-21 11:15] LABS: ALBUMIN 3.3 G/DL (3.4-5.0); ANION GAP 9 (8-16); BLOOD UREA NITROGEN 24 MG/DL (7-18); BUN/CREATININE RATIO 19.7 (5.4-32.0); CALCIUM 9.1 MG/DL (8.5-10.1); CHLORIDE 107 MMOL/L (99-107); CHOL/HDL RATIO 1.8 (0.00-4.99); CHOLESTEROL 132 MG/DL (0-200); CREATININE 1.22 MG/DL (0.60-1.10); GLUCOSE 95 MG/DL (70-104); HDL CHOLESTEROL 74 MG/DL (35-60); LDL CHOLESTEROL 47 MG/DL (50-100); POTASSIUM 4.8 MMOL/L (3.5-5.1); SODIUM 144 MMOL/L (135-145); TOTAL CARBON DIOXIDE 27.8 MMOL/L (24-32); TRIGLYCERIDES 80 MG/DL (20-135); eGFR 58 ML/MIN
[2022-03-26] VITALS (12 sets, daily range): BP systolic 134–177; BP diastolic 65–96
[~2022-03-26] VITALS: Ht 182.9 cm; Wt 109.9 kg
[2022-03-26] MEDS ORDERED: LORazepam 0.5 MG tablet PO PRN (12:05)
[2022-03-26] MEDS ORDERED: normal saline 1,000 ML IV SCH (12:05)
[2022-03-26] MEDS ORDERED: diphenhydrAMINE 25mg capsule PO PRN (12:05)
[2022-03-26] MEDS ORDERED: FLO0.4C PO (12:18)
[2022-03-26] MEDS ORDERED: LOSA50TA3 PO (12:18)
[2022-03-26] MEDS ORDERED: MAGN500C4 PO (12:18)
[2022-03-26] MEDS ORDERED: MULT1CAP66 PO (12:18)
[2022-03-26] MEDS ORDERED: ASPI-611 PO (12:18)
[2022-03-26] MEDS ORDERED: ROSU20TA2 PO (12:18)
[2022-03-26] MEDS ORDERED: verapamil 2.5 mg/ml inj IV ONE (13:33)
[2022-03-26] MEDS ORDERED: midazolam 1 mg/ML 2ml injection ONE (13:33)
[2022-03-26] MEDS ORDERED: LIDOcaine 1% (10mg/ml) 2ml vial ONE (13:34)
[2022-03-26] MEDS ORDERED: fentaNYL/PF 50MCG/1 ML 2ML syringe ONE (13:34)
[2022-03-26] MEDS ORDERED: iohexol 350MG/ML 100ml bottle IV ONE ×2 (13:34→14:30)
[2022-03-26] MEDS ORDERED: nitroGLYCERIN-Tridil 50MG/D5W 0 ML IV ONE (13:34)
[2022-03-26] MEDS ORDERED: heparin 1,000unit/ml 10ml vial 10 ML ONE (13:34)
[2022-03-26] MEDS ORDERED: LIDOcaine 1% 30ml preserv. free vial ONE (13:54)
[2022-03-26] MEDS ORDERED: aspirin 325mg tablet ONE (14:20)
[2022-03-26] MEDS ORDERED: ticagrelor 90mg tablet ONE (14:21)
[2022-03-26] MEDS ORDERED: nitroGLYCERIN 0.4mg SUBLingual tab SL PRN (16:30)
[2022-03-26] MEDS ORDERED: proCHLORperazine 10 MG/2 ml inj IV PRN (16:30)
[2022-03-26] MEDS ORDERED: HYDROcodone/acetaminophen 10/325mg tab PO PRN (16:30)
[2022-03-26] MEDS ORDERED: ondansetron/PF 4mg/2ml inj IV PRN (16:30)
[2022-03-26] MEDS ORDERED: HYDROcodone/acetaminophen 5mg/325mg tablet PO PRN (16:30)
[2022-03-26] MEDS ORDERED: metoprolol succinate 25mg (24-HOUR) SR. Tablet PO ONE (17:40)
== END 2022-03-26 19:49 | disposition home or self-care (01) ==
LOC: SSTAY O 11:18
PROVIDERS: ATTEND Student in an Organized Health Care Education/Training Program
DX: R94.39 Abnormal result of other cardiovascular function study (principal); I25.10 Atherosclerotic heart disease of native coronary artery without angina pectoris; I10 Essential (primary) hypertension; E66.01 Morbid (severe) obesity due to excess calories; D64.9 Anemia, unspecified; Z91.013 Allergy to seafood; Z79.82 Long term (current) use of aspirin; Z85.46 Personal history of malignant neoplasm of prostate; Z79.01 Long term (current) use of anticoagulants; Z79.899 Other long term (current) drug therapy; Z98.890 Other specified postprocedural states
CPT/HCPCS: 36415; 80048; 80061; 85025; 85610; 85730; 93005; 93459; 99152; 99153; C1725; C1751; C1760; C1769; C1874; C1894; C9600; J1644; J2250; J3490; J7030; Q0163; Q9967; A4620; A6258; A6449; J3010

== ENCOUNTER 2023-02-20 07:46 | Day surgery (SDC) | payer MEDICARE, BC ==
[2023-02-20] VITALS (8 sets, daily range): BP systolic 127–169; BP diastolic 56–94; PULSE 62–67; RESP 9–22; O2SAT 95–96
[~2023-02-20] VITALS: Ht 182.9 cm; Wt 102.3 kg
[~2023-02-20 07:46] MED LIST changes: -ALBU8.5H17 IH; -ASPI-1265 PO; +ASPI-611 PO; -ATOR10TA PO; -COL100C PO; +FLO0.4C PO; -HYDR-3972 PO; +LOSA-416 PO; -LOSA50TA64 PO; +MAGN500C4 PO; +MULT1CAP66 PO; +ROSU20TA2 PO; -[UNRECOGNIZED DRUG - OTHER] PO
[2023-02-20] MEDS ORDERED: MULT1CAP66 (08:02)
[2023-02-20] MEDS ORDERED: FERR-28 PO (08:02)
[2023-02-20] MEDS ORDERED: OXYB5TAB16 PO (08:02)
[2023-02-20] MEDS ORDERED: MIDAZolam 1 MG/ML 5ML VIAL ONE (09:48)
[2023-02-20] MEDS ORDERED: fentaNYL/PF 50MCG/1 ML 2ML syringe ONE (09:48)
[2023-02-20] MEDS ORDERED: LIDOcaine Viscous 15ml cup ONE (09:49)
== END 2023-02-20 11:42 | disposition home or self-care (01) ==
LOC: GI LAB 07:46
PROVIDERS: ATTEND Internal Medicine Gastroenterology
DX: D50.0 Iron deficiency anemia secondary to blood loss (chronic) (principal); K92.1 Melena; R10.33 Periumbilical pain; K57.30 Diverticulosis of large intestine without perforation or abscess without bleeding; K29.50 Unspecified chronic gastritis without bleeding; K29.00 Acute gastritis without bleeding; G47.30 Sleep apnea, unspecified; I25.2 Old myocardial infarction; Z85.46 Personal history of malignant neoplasm of prostate; Z95.1 Presence of aortocoronary bypass graft; Z98.84 Bariatric surgery status; Z79.899 Other long term (current) drug therapy
CPT/HCPCS: 43239; 45378; G0500; J2250; J3010; J7030; Z7512; 88305; 88342; 99152; 99153; A4620